=== PATIENT | male | born 1945 | race Caucasian/White ===

== ENCOUNTER 2018-10-06 14:32 | Outpatient (CLI) ==
--- NOTE | 2018-10-06 14:59 | DI ---
EXAM: Two views of the chest. History: Cough. Findings: Heart is mildly enlarged. No focal consolidation. No appreciable pleural fluid and no pn eumothorax. No acute osseous abnormalities. Atherosclerotic vascular calcifications. Impression: Mild cardiomegaly without acute disease in the chest
== END 2018-10-06 14:33 | disposition home or self-care (01) ==
LOC: RAD 14:32
PROVIDERS: ATTEND Family Medicine
DX: R05 Cough (principal)

== ENCOUNTER 2018-10-16 09:21 | Outpatient (CLI) ==
[2018-10-16 10:45] VITALS: BMI 35.4
== END 2018-10-16 09:22 | disposition home or self-care (01) ==
LOC: DIETCN 09:21
PROVIDERS: ATTEND Family Medicine
DX: E11.9 Type 2 diabetes mellitus without complications (principal)
CPT/HCPCS: 97802

== ENCOUNTER 2019-05-19 09:39 | Outpatient (POV) | END 2019-05-19 17:00 | LOC: OUTPT 09:39 | PROVIDERS: ATTEND Otolaryngology | DX: H90.5 Unspecified sensorineural hearing loss (principal) | CPT/HCPCS: 92557; 92567 ==